=== PATIENT | female | born 1960 | race Caucasian/White ===

== ENCOUNTER 2024-12-27 11:45 | Outpatient (CLI) | payer OTHER, MEDICARE | END 2024-12-27 11:46 | disposition home or self-care (01) | LOC: PET 11:45 | PROVIDERS: ATTEND Internal Medicine | DX: R91.1 Solitary pulmonary nodule (principal); J43.9 Emphysema, unspecified | CPT/HCPCS: 36600; 78815; 82805; 94060; 94618; 94664; 94726; 94729; A9552 ==